=== PATIENT | female | born 1965 | race Caucasian/White ===

== ENCOUNTER → 2016-11-08 | Outpatient (CLI) | payer OTHER ==
--- NOTE | 2016-11-08 10:27 | DX ---
Left Wrist, Four Views History: Follow up radial styloid fracture. Comparison: Left wrist October 25, 2016 and September 24, 2016. Findings: There is no significant change in a minimally displaced radial styloid fracture with persis tent lucency at the fracture line. There is no significant callus formation. No new fracture is ident ified. Impression: Stable minimally displaced radial styloid fracture.
== END ==
LOC: BMCIMAGING 09:42
PROVIDERS: ATTEND Physician Assistant
DX: S52.512D Displaced fracture of left radial styloid process, subsequent encounter for closed fracture with routine healing (principal)

== ENCOUNTER → 2016-12-07 | Outpatient (CLI) | payer OTHER ==
--- NOTE | 2016-12-07 14:53 | DX ---
Left Wrist, reduce History: Pain post trauma, date of injury 09/23/2016 Comparison: November 08, 2016 Findings: The fracture line undercutting the radial styloid process is still visible and remains in anatomic alignment. The fracture line is slightly wider, with irregular margins, no radiopaque callus or periosteal new bone is identified. Carpal alignment remains anatomic. Consistent with early heali ng. Impression: Early healing is occurring.
== END ==
LOC: BMCIMAGING 13:10
PROVIDERS: ATTEND Physician Assistant
DX: S52.502D Unspecified fracture of the lower end of left radius, subsequent encounter for closed fracture with routine healing (principal)

== ENCOUNTER 2018-02-05 08:00 | Observation (INO) | payer OTHER ==
--- NOTE | 2018-02-05 06:52 | PDHPUP ---
History & Physical Update H&P update statement: This history and physical update is based on an assessment of the patient which was completed after admission or registration (within 24 hours), but prior to the surgery/procedure. H&P update: no change in patient's condition since H&P completed
--- NOTE | 2018-02-05 06:53 | PDIAF ---
- Diagnosis Diagnosis: left knee lat shiloh - Medication Management Discharge Medications: Medications to Continue on Transfer Escitalopram Oxalate [Lexapro] 10 mg PO HS 01/12/18 [Last Taken Unknown] Estradiol [Vivelle-Dot 0.075MG (*)] 0.075 mg TD TuSa@0800 01/12/18 [Last Taken Unknown] Ibuprofen [Motrin (*)] 200 mg PO DAILY PRN 01/12/18 [Last Taken Unknown] LORazepam [Ativan] 1 mg PO HS PRN 01/12/18 [Last Taken Unknown] Sanford-3 Fatty Acids [Fish Oil 1000 mg (*)] 1,000 mg PO DAILY 01/12/18 [Last Taken Unknown] Progesterone, Micronized [Progesterone] 100 mg PO DAILY 01/12/18 [Last Taken Unknown] hydrOXYzine HCL [Vistaril 25MG] 25 mg PO HS PRN 01/12/18 [Last Taken Unknown] Discharge Medications: Refer to the Discharge Home Medication list for PRN reason. - Orders Services needed: Physical Therapy Activity/Weight Bearing Restrictions: wbat. rom as jodie. dressing changes daily. may shower without bandage, no soaking or immersion. f/u at two weeks. seek attn for increasing pain, cp, leg pain - Follow Up Care Current Providers and Referrals: MARCELLA LYONS [Primary Care Provider] -
[~2018-02-05 08:00] MED LIST: BUPI/epINEPH/KETOROLAC/morphINE IU ONE; NS IV ONE; ROPIVACAINE 0.2% 80 MG, EPINEPHrine 0.2 MG, KETOROLAC TROMETHAMINE 30 MG, morphINE 10 M... IU ONE; TRANEXAMIC ACID IV ONE
[2018-02-05] MEDS ORDERED: ceFAZolin 2 GM/SWFI 2 GM/20 ML SYR IVP ONE (08:16)
[2018-02-05] MEDS ORDERED: FAMOTIDINE 20 MG TAB PO ONE (08:16)
[2018-02-05] MEDS ORDERED: ACETAMINOPHEN 325 MG TAB PO ONE (08:16)
[2018-02-05] MEDS ORDERED: LR 1,000 ML IV ONE (08:17)
[2018-02-05] MEDS ORDERED: CALCIUM CHLORIDE 1 GM/10 ML INJ ONE (08:32)
[2018-02-05] MEDS ORDERED: THROMBIN (BOVINE) 5,000 UNIT VIAL TP ONE (08:32)
[2018-02-05] MEDS ORDERED: ceFAZolin 1 GM/5 ML SYR ONE (08:33)
[2018-02-05] MEDS ORDERED: NS IV ONE (09:00)
[2018-02-05] MEDS ORDERED: TRANEXAMIC ACID IV ONE (09:00)
[2018-02-05] MEDS ORDERED: MIDAZOLAM 2 MG/2 ML VIAL IVP ONE (09:14)
--- NOTE | 2018-02-05 09:14 | PDANEPAE ---
ANE History of Present Illness Left knee OA ANE Past Medical History - Cardiovascular History Hx Hypertension: No Hx Arrhythmias: No Hx Chest Pain: No Hx Coronary Artery / Peripheral Vascular Disease: No Hx CHF / Valvular Disease: No Hx Palpitations: No - Pulmonary History Hx COPD: No Hx Asthma/Reactive Airway Disease: No Hx Recent Upper Respiratory Infection: No Hx Oxygen in Use at Home: No Hx Sleep Apnea: No Sleep Apnea Screening Result - Last Documented: Negative - Neurologic History Hx Cerebrovascular Accident: No Hx Seizures: No Hx Dementia: No - Endocrine History Hx Diabetes: No - Renal History Hx Renal Disorders: No - Liver History Hx Hepatic Disorders: No - Neurological & Psychiatric Hx Hx Neurological and Psychiatric Disorders: Yes Neurological / Psychiatric History Comment: depression,anxiety - Cancer History Hx Cancer: No - Congenital Disorder History Hx Congenital Disorders: No - GI History Hx Gastrointestinal Disorders: No - Other Health History Other Health History: macular degeneration. bruises easily - Chronic Pain History Chronic Pain: No - Surgical History Prior Surgeries: none ANE Review of Systems Review of Systems: - Exercise capacity METS (RN): 6 METS ANE Patient History - Allergies Allergies/Adverse Reactions: No Known Allergies Allergy (Unverified 06/29/16 10:04) - Home Medications Home medications: home medication list seen and reviewed Home Medications: Escitalopram Oxalate [Lexapro] 10 mg PO HS 01/12/18 [Last Taken 02/04/18] Estradiol [Vivelle-Dot 0.075MG (*)] 0.075 mg TD TuSa@0800 01/12/18 [Last Taken 1 Week Ago ~01/29/18] Ibuprofen [Motrin (*)] 200 mg PO DAILY PRN 01/12/18 [Last Taken 1 Week Ago ~12/17] LORazepam [Ativan] 1 mg PO HS PRN 01/12/18 [Last Taken 3 Months Ago ~11/07/17] Denton-3 Fatty Acids [Fish Oil 1000 mg (*)] 1,000 mg PO DAILY 01/12/18 [Last Taken 1 Week Ago ~01/29/18] Progesterone, Micronized [Progesterone] 100 mg PO DAILY 01/12/18 [Last Taken 1 Week Ago ~01/29/18] hydrOXYzine HCL [Vistaril 25MG] 25 mg PO HS PRN 01/12/18 [Last Taken 02/04/18] - NPO status NPO Since - Liquids (Date): 02/04/18 NPO Since - Liquids (Time): 22:00 NPO Since - Solids (Date): 01/28/18 NPO Since - Solids (Time): 19:30 - Anes Hx Anes Hx: no prior problems - Smoking Hx Smoking Status: Former smoker - Family Anes Hx Family Anes Hx: neg - N/A Family Hx Anesthesia Complications: none ANE Labs/Vital Signs - Labs Result Diagrams: 02/05/18 09:05 - Vital Signs Blood Pressure: 116/79 Heart Rate: 60 Respiratory Rate: 14 O2 Sat (%): 98 Height: 175.26 cm Weight: 68.039 kg ANE Physical Exam - Airway Neck exam: FROM Mallampati Score: Class 1 Mouth exam: normal dental/mouth exam - Pulmonary Pulmonary: clear to auscultation - Cardiovascular Cardiovascular: regular rate and rhythym - ASA Status ASA Status: I ANE Anesthesia Plan Anesthesia Plan: spinal Regional Anesthesia: adductor canal FNB
[2018-02-05 09:17] LABS: PLATELET COUNT 199 10^3/uL (150-400)
[2018-02-05] MEDS ORDERED: PROPOFOL/EMULSION 500 MG/50 ML BOTTLE IV ONE (09:22)
[2018-02-05] MEDS ORDERED: fentaNYL 100 MCG/2 ML INJ ONE ×2 (09:22→09:57)
[2018-02-05] MEDS ORDERED: ONDANSETRON 4 MG/2 ML VIAL ONE (09:22)
[2018-02-05] MEDS ORDERED: TRANEXAMIC ACID 3,000 MG/50 ML BAG IRR ONE (09:58)
[2018-02-05] MEDS ORDERED: ROPIVACAINE HCL 150 MG/30 ML INJ ONE (10:50)
[2018-02-05] MEDS ORDERED: METOCLOPRAMIDE 10 MG/2 ML VIAL IVP PRN (11:01)
[2018-02-05] MEDS ORDERED: PROMETHAZINE HCL 25 MG/ML INJ IVP PRN (11:01)
[2018-02-05] MEDS ORDERED: POLYETHYLENE GLYCOL 3350 17 GM PKT PO PRN (11:01)
[2018-02-05] MEDS ORDERED: PROMETHAZINE HCL 25 MG SUPPR PR PRN (11:01)
[2018-02-05] MEDS ORDERED: ONDANSETRON DISINTEGRATING 4 MG TAB PO PRN (11:01)
[2018-02-05] MEDS ORDERED: MAGNESIUM HYDROXIDE 30 ML UDCUP PO PRN (11:01)
[2018-02-05] MEDS ORDERED: DIPHENOXYLATE/ATROPINE LOMOTIL 1 TAB PO PRN (11:01)
[2018-02-05] MEDS ORDERED: ONDANSETRON 4 MG/2 ML VIAL IVP PRN ×2 (11:01→11:11)
[2018-02-05] MEDS ORDERED: BISACODYL 10 MG SUPP PR PRN (11:01)
[2018-02-05] MEDS ORDERED: diphenhydrAMINE 25 MG CAP PO PRN (11:01)
[2018-02-05] MEDS ORDERED: TEMAZEPAM 15 MG CAP PO PRN (11:01)
[2018-02-05] MEDS ORDERED: LACTULOSE 20 GM/30 ML UDCUP PO PRN (11:01)
[2018-02-05] MEDS ORDERED: CYCLOBENZAPRINE 10 MG TAB PO PRN (11:01)
[2018-02-05] MEDS ORDERED: hydrOXYzine HCL 25 MG TAB PO PRN (11:02)
[2018-02-05] MEDS ORDERED: fentaNYL 100 MCG/2 ML INJ IVP PRN (11:11)
[2018-02-05] MEDS ORDERED: NALOXONE HCL 0.4 MG/ML INJ IVP PRN (11:11)
[2018-02-05] MEDS ORDERED: HYDROmorphONE/DILAUDID 2 MG/ML INJ IVP PRN (11:11)
[2018-02-05] MEDS ORDERED: TRANEXAMIC ACID 650 MG TAB PO SCH (11:15)
[2018-02-05] MEDS ORDERED: LR 1,000 ML IV SCH (11:30)
--- NOTE | 2018-02-05 11:39 | POSTANESTH ---
Post Anesthetic Evaluation Cardiovascular Status: Normal, Stable Respiratory Status: Normal, Stable Level of Consciousness/Mental Status: Can Participate in Eval Pain Control: Adequate, Prn Tx Ordered Nausea/Vomiting Control: Adequate, Prn Tx Ordered Complications Possibly Related to Anesthesia: None Noted (Adductor block done in PACU without diff.)
[2018-02-05] MEDS: ACETAMINOPHEN 325 MG TAB PO SCH ×2 (13:33→19:15)
[2018-02-05] MEDS ORDERED: ceFAZolin 2 GM/DEXTROSE 100 ML IV SCH (14:00)
[2018-02-05] MEDS: oxyCODONE IR 5 MG TAB PO PRN (14:41)
[2018-02-05] MEDS: ceFAZolin 2 GM/SWFI 2 GM/20 ML SYR IVP SCH (16:35)
[2018-02-05] MEDS: TRANEXAMIC ACID 650 MG TAB PO SCH (16:35)
[2018-02-05] MEDS ORDERED: ESCITALOPRAM OXALATE 10 MG TAB PO SCH (21:00)
[2018-02-05] MEDS ORDERED: PROGESTERONE,MICR 100 MG CAP PO SCH (21:00)
[2018-02-05] MEDS: ASPIRIN 325 MG TAB PO SCH (22:54)
[2018-02-05] MEDS: FAMOTIDINE 20 MG TAB PO SCH (22:54)
[2018-02-05] MEDS: SENNOSIDES/DOCUSATE SODIUM TAB PO SCH (22:54)
[2018-02-06] MEDS: ACETAMINOPHEN 325 MG TAB PO SCH ×2 (00:12→05:56)
[2018-02-06] MEDS: ceFAZolin 2 GM/SWFI 2 GM/20 ML SYR IVP SCH (00:12)
[2018-02-06] MEDS: TRANEXAMIC ACID 650 MG TAB PO SCH ×2 (00:12→07:42)
[2018-02-06] MEDS: oxyCODONE IR 5 MG TAB PO PRN (07:29)
[2018-02-06] MEDS ORDERED: DIAZEPAM 5 MG TAB PO PRN (07:42)
--- NOTE | 2018-02-06 07:48 | PDIAF ---
- Diagnosis Diagnosis: left knee lat shiloh Code Status: Full Code - Medication Management Discharge Medications: Medications to Continue on Transfer Escitalopram Oxalate [Lexapro 10 MG] 10 mg PO HS 01/12/18 [Last Taken 02/04/18] Estradiol [Vivelle-Dot 0.075MG (*)] 0.075 mg TD TuSa@0800 01/12/18 [Last Taken 1 Week Ago ~01/29/18] Ibuprofen [Motrin (*)] 200 mg PO DAILY PRN 01/12/18 [Last Taken 1 Week Ago ~12/17] LORazepam [Ativan] 1 mg PO HS PRN 01/12/18 [Last Taken 3 Months Ago ~11/07/17] Horatio-3 Fatty Acids [Fish Oil 1000 mg (*)] 1,000 mg PO DAILY 01/12/18 [Last Taken 1 Week Ago ~01/29/18] Progesterone, Micronized [Progesterone] 100 mg PO DAILY 01/12/18 [Last Taken 1 Week Ago ~01/29/18] hydrOXYzine HCL [Vistaril 25MG] 25 mg PO HS PRN 01/12/18 [Last Taken 02/04/18] Aspirin [Aspirin 325 mg (*)] 325 mg PO DAILY tab 02/06/18 [Last Taken Unknown] Diazepam [Valium 5 MG (*)] 5 mg PO Q6HRS PRN #50 tab 02/06/18 [Last Taken Unknown] oxyCODONE IR [Oxycodone Ir (*)] 5 - 10 mg PO Q3HRS PRN #60 tab 02/06/18 [Last Taken Unknown] Discharge Medications: Refer to the Discharge Home Medication list for PRN reason. - Orders Services needed: Physical Therapy Diet Recommendation: no restrictions on diet Diet Texture: Regular Texture Diet Activity/Weight Bearing Restrictions: wbat. rom as jodie. dressing changes daily. may shower without bandage, no soaking or immersion. f/u at two weeks. seek attn for increasing pain, cp, leg pain - Follow Up Care Current Providers and Referrals: MARCELLA LYONS [Primary Care Provider] - Wei Yuan MD [Medical Doctor] -
--- NOTE | 2018-02-06 07:50 | SOAPPROG ---
SOAP Progress Note Assessment/Plan: Assessment: s/p partial knee Plan:d/c home dvt precatuions f/u at two weeks 02/06/18 07:48 Subjective: no pain no cp or sob jodie po Objective: Vital Signs Temp Pulse Resp BP Pulse Ox 36.9 C 58 L 16 108/65 96 02/06/18 04:00 02/06/18 04:00 02/06/18 04:00 02/06/18 04:00 02/06/18 04:00 Laboratory Results 02/06/18 05:39 02/05/18 02/06/18 02/07/18 05:59 05:59 05:59 Intake Total 4920 Output Total 2675 Balance 2245 dressing intact intact pf,df,ehl toes warm and pink neg homans courtney xrays stable alignement no fx or lucency ICD10 Worksheet Patient Problems: Problems Problem Status Onset Arthritis of knee Acute - ICD10 Problem Qualifiers (1) Arthritis of knee
[2018-02-06] MEDS ORDERED: ESTRADIOL VIVELLE 0.075 MG PATCH TD SCH (08:00)
[2018-02-06] MEDS ORDERED: PROGESTERONE MICRONIZED 100 MG PO SCH (09:00)
[2018-02-06] MEDS: SENNOSIDES/DOCUSATE SODIUM TAB PO SCH (09:26)
[2018-02-06] MEDS: ASPIRIN 325 MG TAB PO SCH (09:26)
[2018-02-06] MEDS: FAMOTIDINE 20 MG TAB PO SCH (09:26)
--- NOTE | 2018-02-06 11:41 | ASMTCMCOM ---
CM Note CM Note Notes: Pt medically stable for d/c with [facility] PT. Orders to be obtained via [employer]. Date Signed: 02/06/2018 11:41 AM Electronically Signed By:BRIAN Sanford
[2018-02-06 11:47] VITALS: BP 109/64
--- NOTE | 2018-02-06 14:22 | ASDISCHSUM ---
Discharge Information Plan Status:Home with Home Health Medically Cleared to Leave: Discharge Date:02/06/2018 12:21 PM CM D/C Disposition:Home Health Service ADT D/C Disposition:Home Health Service Projected Discharge Date:02/06/2018 11:00 AM Transportation at D/C:Family Discharge Delay Reason: Follow-Up Date:02/06/2018 11:00 AM Discharge Slot: Final Diagnosis: Placement Information Referral Type:*Home Health Care Services Referral ID:[id number] Provider Name:[facility] Care Address 1:[address] [place] [address] Address 2: City:[place] Selection Factors: State:[place] Patient Contact Information Contact Name:LUIS Relationship: Address: Work Phone: City: [facility] Phone: [facility] Code: Email: Financial Information Financial Class:[facility] Primary Plan Desc:[employer] PPO HMO OPEN ACC LOCAL Primary Plan Number:[id number] Secondary Plan Desc: Secondary Plan Number: Assessment Information BC CM Progress Note CM Note CM Note Notes: Pt medically stable for d/c with [facility] PT. Orders to be obtained via [facility]. Date Signed: 02/06/2018 11:41 AM Electronically Signed By:BRIAN Sanford Intervention Information
--- NOTE | 2018-02-10 07:30 | GDS ---
[f rep st] DISCHARGE SUMMARY ADMISSION DIAGNOSIS: Left knee lateral arthritis. DISCHARGE DIAGNOSIS: Left knee lateral arthritis. PROCEDURE: Left knee partial knee replacement/lateral MAKOplasty. OPERATIVE INDICATIONS: Deysi Coronel is a 52-year-old woman with endstage arthritis to the lateral c ompartment of her knee. She has failed all attempts at conservative management. I have recommended partial knee replacement. She understood the risks, benefits, alternatives, and wished to proceed. Written consent was signed and placed in the patient's chart. HOSPITAL COURSE: The patient was admitted to the hospital floor after uncomplicated partial lateral MAKOplasty. She tolerated the procedure well. At the time of discharge, she is tolerating an oral di et, pain was well controlled on oral medicines, and she is voiding without difficulty. Dressing is c lean, dry, and intact. She has negative Homans. X-rays are anatomic. She has been cleared by Physic al Therapy. DISCHARGE ACTIVITY: Weightbearing as tolerated. Range of motion as tolerated. Daily dressing tapia es. No soaking or immersion. GHISLAINE hose x2 weeks. DISCHARGE MEDICATIONS: Aspirin 325 mg p.o. daily for 6 weeks, oxycodone 5 mg 1 to 2 every 6 hours p. r.n. pain, and Valium 5 mg 1 to 2 every 6 hours p.r.n. spasm. FOLLOWUP: Follow up at 2 weeks. Seek attention for increasing redness, swelling, drainage, or disch arge. /[id number]/MODL
--- NOTE | 2018-02-10 07:35 | GOP ---
[f rep st] OPERATIVE REPORT DATE OF OPERATION: 02/05/2018 SURGEON: Wei Yuan MD BAGGING MACHINE OPERATOR: Michael Ferguson, LINE HAUL TRUCK DRIVER, PROOF INSPECTOR, records management assistant was a medical necessity for the entirety of the case. Also present was Patti Scruggs PAC. PREOPERATIVE DIAGNOSIS: Left knee lateral compartment arthritis. POSTOPERATIVE DIAGNOSIS: Left knee lateral compartment arthritis. PROCEDURE PERFORMED: Left knee partial replacement-MAKOplasty/lateral. FINDINGS: SPECIMENS: None. DESCRIPTION OF PROCEDURE: The patient was identified in the preanesthesia area. The left knee clear ly demarcated as operative site with indelible marker. She was given 2 g of Ancef intravenously en r oute to the operative suite. In the OR, spinal anesthetic was placed, followed by sedation. The lef t knee and lower extremity were sterilely prepped and draped in the usual fashion. A tourniquet was applied to the upper thigh. Appropriate time-out procedure was carried out. The limb was then exsan guinated with an Esmarch bandage. Tourniquet inflated to 275 mmHg. Standard anterior midline incisi on was made. A separate percutaneous incision was made across the mid femur, mid britt, and the femor al and tibial reference rays were affixed. The femoral and tibial checkpoints were then placed. The bony landmarks were then entered into the computer in standard fashion. The knee was balanced throu gh the flexion-extension arc and the components adjusted to centralize the tracking. Using the [email or web address] robot, resections were made for a size 3 femoral component, size 2 tibial component, and a tria l reduction was carried out with a 2 x 9 mm polyethylene spacer. The knee tracked well through the f lexion-extension arc, was stable to varus and valgus stress throughout the flexion-extension arc. Th e trial components were withdrawn. The bony surfaces were thoroughly cleansed and dried. In a seque ntial fashion, the tibial and femoral components were then cemented. A final 2 x 9 mm polyethylene s pacer was then placed, confirmed to be fully seated. The margins were instilled with a joint cocktai l of ropivacaine, morphine, Toradol, and epinephrine. The lateral arthrotomy was closed using #1 Eth ibond suture, the subcutaneous tissue closed using 0 Quill, and the skin stapled. The deep tissue wa s then instilled with a platelet-rich plasma solution. Sterile dressing was applied. The patient wa s awakened, extubated, taken to recovery room in good stable condition. OPERATIVE INDICATIONS: The patient is a 52-year-old woman who has persistent pain, catching and mech anical instability secondary to advanced arthritis isolated to her lateral compartment. She has fail ed all attempts at conservative management. I have therefore recommended operative intervention. I have outlined the surgical procedure, risks, benefits, and alternatives. She wished to proceed with operative intervention. Appropriate consent was signed and placed in patient's chart. TOTAL TOURNIQUET TIME: 40 minutes. COMPLICATIONS: None. IMPLANTS: The MAKOplasty Restoris size 3 femur, size 2 tibia, 2 x 9 mm polyethylene spacer. DISPOSITION: To the recovery room, then the floor. She is weightbearing, range of motion as tolerat ed. /[id number]/MODL
== END 2018-02-06 12:21 | disposition home health service (06) ==
LOC: F3N 08:00 → INTOOBSV 08:00 → MERGE 10:45 → F3N 12:40
PROVIDERS: ADMIT Orthopaedic Surgery; ATTEND Orthopaedic Surgery
PROC: 0SRD0JZ Replacement of Left Knee Joint with Synthetic Substitute, Open Approach (ICD-10-PCS; principal; 2018-02-05 09:45)
DX: M17.12 Unilateral primary osteoarthritis, left knee (principal); F41.8 Other specified anxiety disorders; G47.00 Insomnia, unspecified; Z78.0 Asymptomatic menopausal state; E55.9 Vitamin D deficiency, unspecified; Z80.3 Family history of malignant neoplasm of breast; Z79.890 Hormone replacement therapy
CPT/HCPCS: 27446; 73560; 97110; 97116; 97161; 97165; C1776; G0378; C1713; J0171; J0690; J1885; J2250; J2270; J2405; J2704; J2795; J3010

== ENCOUNTER → 2018-03-19 | Outpatient (CLI) | payer OTHER | LOC: BMCIMAGING 08:12 | PROVIDERS: ATTEND Physician Assistant | DX: Z47.89 Encounter for other orthopedic aftercare (principal); M25.462 Effusion, left knee; Z96.652 Presence of left artificial knee joint ==

== ENCOUNTER → 2018-04-25 | Outpatient (CLI) | payer OTHER | LOC: BMCIMAGING 08:18 | PROVIDERS: ATTEND Physician Assistant | DX: Z47.1 Aftercare following joint replacement surgery (principal); Z96.652 Presence of left artificial knee joint ==